=== PATIENT | female | born 1990 | race Caucasian/White ===

== ENCOUNTER 2016-11-03 23:13 | Outpatient (CLI) | payer SELFPAY ==
[~2016-11-03] VITALS: Ht 165.1 cm; Wt 85.8 kg
[~2016-11-03 23:13] MED LIST: CEPH-443 PO; TYL500 PO
[2016-11-03 23:52] VITALS: Ht 165.1 cm; Wt 85.8 kg
[2016-11-03 23:53] VITALS: BP 117/71; PULSE 93; RESP 18
[2016-11-03] MEDS ORDERED: PREN1TAB79 PO (23:56)
[2016-11-03] MEDS ORDERED: FERR325C PO (23:56)
[2016-11-04] MEDS ORDERED: TERBUTALINE 1 MG/ML INJ SC PRN (00:30)
[2016-11-04] MEDS ORDERED: LACTATED RINGER'S 1,000 ML IV* PRN (00:30)
--- NOTE | 2016-11-04 02:25 | RADRPT ---
PROCEDURE: US OB. CLINICAL INDICATION: labor TECHNIQUE: Multiple sonographic images of the pelvis were obtained. The images were reviewed on a PACS workstation. COMPARISON: 07/27/2016 FINDINGS: The cervix is closed with a length of 2.49 cm. There is a viable twin intrauterine gestation. TWIN A: Cardiac activity is present with 142 beats per minute. There is a breech presentation. Measurements were made in order to determine age. The results are as follows: BPD =7.97 cm. HC =29.31 cm. AC =28.18 cm. FL =6.21 cm. Estimated gestational age of approximately 32 weeks and 1 day. The estimated date of delivery is 12/29/2016. The EFW = 1924 grams (4 pounds 4 ounces) . Complete anatomic survey was not performed. The placenta is posterior and grade 2. Color Doppler flow was demonstrated.. There is no evidence f or an abruption or placenta previa. Amniotic fluid was not assessed. TWIN B: Cardiac activity is present with 156 beats per minute. There is a breech presentation. Measurements were made in order to determine age. The results are as follows: BPD =7.96 cm. HC =29.04 cm. AC =27.96 cm. FL =6.21 cm. Estimated gestational age of approximately 32 weeks and 0 days. The estimated date of delivery is 12/30/2016. The EFW = 1893 grams (4 pounds 3 ounces) . Anatomic survey was not performed. The placenta is posterior and grade 2. Color Doppler flow is demonstrated.. There is no evidence fo r an abruption or placenta previa. Amniotic fluid was not assessed. There are no imaged adnexal masses.. IMPRESSION: Live twin intrauterine gestation. Twin A: estimated gestational age of 32 weeks and 1 day with estimated date of delivery of 12/30/19 17. Estimated weight, 1924 g (4 pounds 4 ounces) Twin B: Estimated gestational age of 32 weeks and 0 days with estimated date of delivery of 017. Estimated weight 1893 g (4 pounds 3 ounces). Both placentas were posterior and grade 2 without definite evidence for abruption or previa. RPTAT: HLBE Ember Randall, Physician Date Time Electronically viewed and signed by Ember Randall, Physician on 11/04/2016 02:24 LE/
--- NOTE | 2016-11-04 03:20 | QN ---
Documentation Comment Laborist Dr Pham's pt. 26 y.o. G1 with a twin at 30w 6d and c/o UC's since 2199. Denies any VB or leaking. +FM. PMHx: GDM. PSHx: none. All: Tylenol. BP= 117/71. T= 97.9. EFW 1924 and 1893 grams, both breech. Cervix 2.49 cm. NST: baseline 150 bpm with accels to 170 bpm. No decels. UC's initially q 10 min but resolved completely after one dose of terbutaline and an IV bolus. A: IUP at 30w 6d. Twins. False labor. P: D/C IV and D/C home. PTL precautions given., REGGIE MAHER MD Nov 04, 2016 03:20
--- NOTE | 2016-11-04 04:42 | TRIAGE ---
OB Triage Datetime Report Generated by CPN: 11/04/2016 04:41 Datetime: 11/04/2016 03:00 Labor Evaluation Frequency: 0 Monitor Mode: External Duration (sec)2399: 0 Pattern: Normal: <= 5 Contractions in 10 Minutes Heart Rate FHR Baseline Rate: 150 Monitor Mode: External US FHR Baseline Changes: No Baseline Change Variability: Moderate 6-25 bpm Decelerations: None Category: Category I Datetime: 11/04/2016 02:07 Monitor Mode: External US Datetime: 11/04/2016 02:00 Labor Evaluation Frequency: 0 Monitor Mode: External Duration (sec)2399: 0 Pattern: Normal: <= 5 Contractions in 10 Minutes Contraction Comments: PT. DENIES HAVING CONTRACTIONS Heart Rate FHR Baseline Rate: 150 Monitor Mode: External US FHR Baseline Changes: No Baseline Change Variability: Moderate 6-25 bpm Datetime: 11/04/2016 01:43 Monitor Mode: External Monitor Mode: External US Datetime: 11/04/2016 01:00 Labor Evaluation Frequency: 0 Monitor Mode: External Duration (sec)2399: 0 Pattern: Normal: <= 5 Contractions in 10 Minutes Heart Rate FHR Baseline Rate: 145 Monitor Mode: External US FHR Baseline Changes: No Baseline Change Variability: Moderate 6-25 bpm Accelerations: 10X10 Category: Category I Datetime: 11/04/2016 00:49 Contraction Comments: PT. SELF REPORTS THAT SHE LAST FELT A UC AT MIDNIGHT Datetime: 11/04/2016 00:46 Monitor Mode: Palpation Resting Tone Chambers: Relaxed Monitor Mode: External US Datetime: 11/04/2016 00:16 Stage of : OB Triage Datetime: 11/04/2016 00:00 Monitor Mode: Palpation Pattern: Normal: <= 5 Contractions in 10 Minutes Heart Rate FHR Baseline Rate: 145 FHR Baseline Changes: No Baseline Change Variability: Moderate 6-25 bpm Accelerations: 10X10 Decelerations: None Category: Category I Datetime: 11/03/2016 23:48 Assessment Type: Triage Maternal Assessment Level of Consciousness: Fully Conscious DTR's/Clonus: DTRs 2+; No Clonus Headache: Denies Blurred Vision: No Respiratory Effort: Unlabored; Regular Rhythm; Equal Expansion Breath Sounds, Left: Clear and Equal Breath Sounds, Right: Clear and Equal Nausea/Vomiting: Denies RUQ Epigastric Pain: Denies Lower Extremities Edema: None Upper Extremities Edema: None Facial Edema: None Fall Risk Assessment History of Falling: (0) No Secondary Diagnosis: (0) No Ambulatory Aid: (0) Bedrest/Nurse Assist IV Therapy: (0) No Gait: (0) Normal/Bedrest/Immobile Mental Status: (0) Oriented to Own Ability Fall Score: 0 Fall Risk Score Definition: No Risk: No action required Datetime: 11/03/2016 23:45 Time of Arrival: 11/03/2016 23:09 EGA: 30.6 Arrived By: Wheelchair Arrived From: Home Chief Complaint: UC'S SINCE 22:00 Contractions: Occasional Contractions: Q10 Rupture of Membranes: Denies Vaginal Discharge: Denies Recent Sexual Intercouse: Denies Abdominal Trauma: Not Applicable Patient Complaints: Contractions Initial Plan: EFM, CALL OB Datetime: 11/03/2016 23:29 Monitor Mode: Palpation Quality: Mild Contraction Comments: MOVEMENT FELT
== END 2016-11-04 03:45 | disposition home or self-care (01) ==
LOC: OBT 23:13 → L-D 23:14 → OBT 11-04 03:45
PROVIDERS: ATTEND Obstetrics & Gynecology
DX: O47.03 False labor before 37 completed weeks of gestation, third trimester (principal); O30.003 Twin pregnancy, unspecified number of placenta and unspecified number of amniotic sacs, third trimester; Z3A.30 30 weeks gestation of pregnancy
CPT/HCPCS: 36415; 76815; 76817; 96360; 96372; G0463; J3105

== ENCOUNTER 2016-11-26 03:22 | Inpatient (IN) | payer MEDICAID ==
[~2016-11-26] VITALS: Ht 167.6 cm; Wt 87.1 kg
[~2016-11-26 03:22] MED LIST changes: -CEPH-443 PO; +FERR325C PO; +PREN1TAB79 PO; -TYL500 PO
[2016-11-26] MEDS ORDERED: LACTATED RINGER'S 1,000 ML IV ONE (04:30)
[2016-11-26 04:46] VITALS: Ht 167.6 cm; Wt 87.1 kg
[2016-11-26 05:29] LABS: ADD SCAN DIFF NO
[2016-11-26 05:35] LABS: BASOPHILS % 0.2 % (0.0-2.0); EOSINOPHILS % 0.1 % (0.0-7.0); HEMATOCRIT 27.8 % (37.0-47.0); HEMOGLOBIN 8.8 g/dl (12.0-16.0); LYMPHOCYTES # 1.3 10^3/ul (0.8-2.9); LYMPHOCYTES % 14.9 % (15.0-51.0); MEAN CORPUSCULAR HEMOGLOBIN 24.4 pg (29.0-33.0); MEAN CORPUSCULAR HGB CONC 31.7 g/dl (32.0-37.0); MEAN PLATELET VOLUME 9.6 fl (7.4-10.4); MONOCYTE # 0.9 10^3/ul (0.3-0.9); MONOCYTES % 10.1 % (0.0-11.0); NEUTROPHIL # 6.4 10^3/ul (1.6-7.5); NEUTROPHILS % 74.2 % (39.0-77.0); PLATELET COUNT 282 10^3/UL (140-415); RED BLOOD COUNT 3.61 10^6/ul (4.20-5.40); RED CELL DISTRIBUTION WIDTH 14.6 % (11.5-14.5); WHITE BLOOD COUNT 8.6 10^3/ul (4.8-10.8)
[2016-11-26 05:47] LABS: ALBUMIN 3.1 g/dl (3.3-4.9); POTASSIUM 4.1 mmol/L (3.5-5.1)
[2016-11-26 05:49] LABS: CREATININE 0.6 mg/dl (0.44-1.00)
[2016-11-26 05:50] LABS: BILIRUBIN,INDIRECT 0.3 mg/dl (0-1.1); BILIRUBIN,TOTAL 0.3 mg/dl (0.2-1.3); TOTAL PROTEIN 6.4 g/dl (6.1-8.1); URIC ACID 5.3 mg/dl (3.1-7.9)
[2016-11-26 05:51] LABS: CALCIUM 8.8 mg/dl (8.4-10.2)
[2016-11-26 05:58] LABS: ALBUMIN/GLOBULIN RATIO 0.93
[2016-11-26 06:09] LABS: INR 0.95; PARTIAL THROMBOPLASTIN TIME 26.9 Sec (25.0-35.0); PROTIME 12.7 Sec (12.2-14.2)
[2016-11-26 06:22] LABS: ADD UMIC YES; URINE BILIRUBIN (Dip) NEGATIVE (NEGATIVE); URINE BLOOD (Dip) NEGATIVE (NEGATIVE); URINE COLOR LT. YELLOW (YELLOW); URINE GLUCOSE (Dip) NEGATIVE (NEGATIVE); URINE KETONES (Dip) NEGATIVE (NEGATIVE); URINE LEUKOCYTE ESTERASE (Dip) 1+ (NEGATIVE); URINE NITRITE (Dip) NEGATIVE (NEGATIVE); URINE TOTAL PROTEIN (Dip) NEGATIVE (NEGATIVE); URINE UROBILINOGEN (Dip) 0.2 E.U./dL (0.1-1.0)
[2016-11-26] MEDS ORDERED: BUTORPHANOL 2 MG INJ IV ONE (06:30)
[2016-11-26] MEDS ORDERED: TERBUTALINE 1 MG/ML INJ SC ONE (06:30)
[2016-11-26 06:43] LABS: SQUAMOUS EPITHELIAL CELL,UR FEW; URINE RBCS NONE SEEN /HPF (0)
[2016-11-26] MEDS ORDERED: OXYTOCIN 30 UNITS/LR 500 ML IV PRN ×2 (08:30→22:00)
[2016-11-26] MEDS ORDERED: METHYLERGONOVINE 0.2 MG INJ IM PRN ×2 (08:30→22:00)
[2016-11-26] MEDS ORDERED: CARBOPROST 250 MCG INJ IM PRN ×2 (08:30→22:00)
[2016-11-26] MEDS ORDERED: MISOPROSTOL 200 MCG TAB PR PRN ×2 (08:30→22:00)
--- NOTE | 2016-11-26 08:47 | HP ---
Date/Time of Note Date/Time of Note DATE: 11/26/16 TIME: 08:45 OB - History Hx of Present Free Text/Dictation at 35 weeks with twin gestation. presented with headache and elevated bp. pt. is feeling uterine ctxs. Care: Good Care Ultrasounds: Normal mid trimester US Obstetrical Complications: Other Medical Complications: Other Past Family/Social History * Past Medical, Surgical, Family and Obstetric Histories reviewed from chart. OB Admission Exam Physical Exam HEENT: WNL Heart: Rhythm Normal Lungs: Clear, Equal Abdomen: WNL Extremities: Normal Reflexes: Normal Cervical Dilatation: 1cm Station: -3 Membranes: Intact Heart Rate: 130's Accelerations: Accelerations Present Decelerations: No Decelerations Varibility: Moderate Contractions on Admission: 6-10 Minutes Apart Intensity: Moderate Last 72 hours Lab Results CBC & BMP 11/26/16 05:15 Liver Function Test 11/26/16 05:15 Alanine Aminotransferase (ALT/SGPT) 26 Albumin 3.1 L Alkaline Phosphatase 173 H Aspartate Amino Transf (AST/SGOT) 20 Direct Bilirubin 0.00 Total Protein 6.4 OB Assessment/Plan Reason for admission: other (elevated bp and ctxs for twins at 35 weeks ) Plan: Section FREDY FUNEZ MD Nov 26, 2016 08:47
[2016-11-26] MEDS: CEFAZOLIN 2 GM/50 ML (PMX) 50 ML IV SCH ×2 (11:51→19:14)
[2016-11-26] MEDS ORDERED: CITRIC ACID/NA CITRATE 30 ML CUP ONE (14:24)
[2016-11-26] MEDS ORDERED: ONDANSETRON 4 MG INJ ONE (14:24)
[2016-11-26] MEDS: LACTATED RINGER'S 1,000 ML IV SCH ×3 (14:27→21:46)
[2016-11-26] MEDS ORDERED: ONDANSETRON 4 MG INJ IV STA ×3 (15:00→15:25)
[2016-11-26] MEDS ORDERED: CITRIC ACID/NA CITRATE 30 ML CUP PO ONE (15:00)
[2016-11-26] MEDS ORDERED: morphine SULFATE/PF (10 MG/10 ML) INJ ONE (17:52)
[2016-11-26] MEDS ORDERED: PHENYLephrine (100 MCG/ML) 5ML SYG ONE ×2 (18:22→18:37)
[2016-11-26] MEDS ORDERED: DEXAMETHASONE 4 MG/ML 1 ML INJ ONE (18:22)
[2016-11-26] MEDS ORDERED: ESMOLOL 10 ML ONE (18:22)
[2016-11-26] MEDS ORDERED: OXYTOCIN 10 UNIT INJ ONE (18:22)
[2016-11-26] MEDS ORDERED: METOCLOPRAMIDE 10 MG INJ ONE (18:22)
[2016-11-26] MEDS ORDERED: KETOROLAC 30 MG INJ ONE (18:22)
[2016-11-26] MEDS ORDERED: morphine 2 MG INJ IV PRN ×2 (18:30)
[2016-11-26] MEDS ORDERED: ONDANSETRON 4 MG INJ IV PRN (18:30)
[2016-11-26] MEDS ORDERED: PROCHLORPERAZINE 10 MG INJ IV PRN (18:30)
[2016-11-26] MEDS ORDERED: NALOXONE (0.4 MG/ML) INJ IV PRN (18:30)
[2016-11-26] MEDS ORDERED: HYDROmorphONE 1 MG/ML SYG IV PRN ×2 (18:30)
[2016-11-26] MEDS ORDERED: DIPHENHYDRAMINE 50 MG INJ IV PRN (18:30)
[2016-11-26] MEDS ORDERED: KETOROLAC 30 MG INJ IV PRN (18:30)
[2016-11-26] MEDS ORDERED: FENTAnyl 50 MCG/ML VIAL ONE (18:36)
[2016-11-26] MEDS: OXYTOCIN 30 UNITS/LR 500 ML IV SCH ×3 (19:16→21:46)
[2016-11-26 21:30] VITALS: BP 126/77; PULSE 98; RESP 18
--- NOTE | 2016-11-26 21:50 | OPR ---
Operative Report Planned Procedure Free Text/Dictation 35 weeks twins with high bp and uterine ctxs Procedure date Nov 26, 2016 Performed by: FREDY FUNEZ MD Assisting provider: FILOMENA HUSTON MD Anesthesia Type: spinal Procedure Description Under satisfactory []spinal anesthesia, the patient was prepped and draped and placed in a supine position, tilted to the left. Pfannenstiel incision was made , carried through the subcutaneous tissue. Bleeders brought under control with electrocautery. Fascia incised to the length of the incision. Rectus muscles from the fascia, divided midline. Peritoneum exposed, entered through a transverse incision. Exploration of abdomen revealed gravid uterus. Bladder flap was developed. Transverse incision was made in the lower segment of the uterus. Amniotic sac ruptured. [clear] amniotic fluid noted. both twins are delivered cephallically . [] Nasal oropharyngeal suction was performed. The baby was handed to the team for immediate attention. The placenta was delivered manually intact. Uterine cavity was cleaned with wet sponge and drainage established. Uterus closed in 2 layers using []one monocryl in continuous fashion. Peritoneal cavity irrigated with warm saline. Sponge, needle and instrument count reported to be correct. Abdominal peritoneum closed with [] continuously. Rectus muscle approximated with []. Fascia closed with one monocryl [], and skin closed with tiffanie. Estimated blood loss 700 []mL. Urine bag contained []mL of urine Post-Procedure Findings: Live Baby [], Apgars [] and [], weight [], position [], [] presentation []cord. Specimen removed: Yes Complications: None Pt Condition post procedure: stable Disposition: PACU Physician Certification I, the undersigned physician, hereby certify that I have discussed the procedure described in this consent form with this patient (or the patient's legal disability representative), including: * The risk and benefits of the procedure; * Any adverse reactions that may reasonably be expected to occur; * Any alternative efficacious methods of treatment which may be medically viable ; * The potential problems that may occur during recuperation; * Potential for blood transfusion and associated risks/benefits; and * Any research or economic interest I may have regarding this treatment. I further certify that the patient/legally responsible person was encouraged to ask question and that all questions were answered. FREDY FUNEZ MD Nov 26, 2016 21:50
[2016-11-26 22:00] VITALS: BP 122/70; PULSE 82; RESP 18
[2016-11-26] MEDS ORDERED: NACL 0.9% 3 ML SYG IV SCH (22:00)
[2016-11-26] MEDS ORDERED: LANOLIN 7 GM TUBE TOP PRN (22:00)
[2016-11-26] MEDS ORDERED: NA PHOSPHATE/BIPHOS 133 ML ENEMA PR PRN (22:00)
[2016-11-26] MEDS: IBUPROFEN 800 MG TAB PO SCH (22:00)
[2016-11-26] MEDS ORDERED: OXYCODONE/ASPIRIN (4.88/325) TAB PO PRN (22:00)
[2016-11-26 23:00] VITALS: BP 118/70; PULSE 86; RESP 18
[2016-11-27] MEDS: OXYTOCIN 30 UNITS/LR 500 ML IV SCH ×2 (03:51→05:40)
[2016-11-27 04:10] VITALS: BP 128/68; PULSE 80; RESP 18
[2016-11-27] MEDS: LACTATED RINGER'S 1,000 ML IV SCH (05:46)
[2016-11-27] MEDS: IBUPROFEN 800 MG TAB PO SCH ×3 (06:00→20:52)
--- NOTE | 2016-11-27 06:39 | OPPN ---
Date/Time of Note Date/Time of Note DATE: 11/27/16 TIME: 06:38 Post-Anesthesia Notes Post-Anesthesia Note Activity: WNL Respiratory function: WNL Cardiovascular function: WNL Mental status: Baseline Pain reasonably controlled: Yes Hydration appropriate: No Nausea/Vomiting absent: No Pt recovered from regional: Yes DEMETRIO GUIDO MD Nov 27, 2016 06:38
[2016-11-27 07:50] VITALS: BP 122/75; PULSE 97; RESP 18
[2016-11-27 08:21] LABS: ADD SCAN DIFF NO
[2016-11-27 08:28] LABS: BASOPHILS % 0.2 % (0.0-2.0); HEMATOCRIT 22.9 % (37.0-47.0); HEMOGLOBIN 7.4 g/dl (12.0-16.0); LYMPHOCYTES # 1.7 10^3/ul (0.8-2.9); LYMPHOCYTES % 15.8 % (15.0-51.0); MEAN CORPUSCULAR HEMOGLOBIN 24.7 pg (29.0-33.0); MEAN CORPUSCULAR HGB CONC 32.3 g/dl (32.0-37.0); MEAN CORPUSCULAR VOLUME 76.6 fl (82.0-101.0); MEAN PLATELET VOLUME 9.8 fl (7.4-10.4); MONOCYTE # 1.1 10^3/ul (0.3-0.9); MONOCYTES % 10.7 % (0.0-11.0); NEUTROPHIL # 7.7 10^3/ul (1.6-7.5); NEUTROPHILS % 72.9 % (39.0-77.0); NUCLEATED RED BLOOD CELLS% 0.2 /100WBC (0.0-0.0); PLATELET COUNT 246 10^3/UL (140-415); RED BLOOD COUNT 2.99 10^6/ul (4.20-5.40); RED CELL DISTRIBUTION WIDTH 14.8 % (11.5-14.5); WHITE BLOOD COUNT 10.5 10^3/ul (4.8-10.8)
[2016-11-27] MEDS ORDERED: LACTATED RINGER'S 1,000 ML IV SCH (10:30)
--- NOTE | 2016-11-27 11:30 | QN ---
Documentation Comment DOING WELL VSS ABD SOFT. D/C IV . CPM FREDY FUNEZ MD Nov 27, 2016 11:30
[2016-11-27 15:26] VITALS: BP 125/82; PULSE 85; RESP 18
[2016-11-27] MEDS: OXYCODONE/ASPIRIN (4.88/325) TAB PO PRN (18:23)
[2016-11-27 20:55] VITALS: BP 118/80; PULSE 102; RESP 18
[2016-11-28 04:30] VITALS: BP 125/78; PULSE 76; RESP 18
[2016-11-28] MEDS: IBUPROFEN 800 MG TAB PO SCH ×3 (05:58→21:34)
[2016-11-28 07:40] VITALS: BP 120/79; PULSE 76; RESP 18
[2016-11-28] MEDS ORDERED: DIPHTH/TET/ACEL PERTUSS (ADULT) 0.5 ML VIAL IM* ONE (09:00)
[2016-11-28] MEDS ORDERED: INFLUENZA VIRUS VACCINE 0.5 ML (DISPENSING) IM* ONE (09:00)
[2016-11-28] MEDS: DOCUSATE SODIUM 100 MG CAP PO SCH ×2 (10:13→21:34)
[2016-11-28] MEDS: FERROUS FUMARATE (SR) TAB PO SCH ×2 (11:14→21:34)
--- NOTE | 2016-11-28 13:06 | PN ---
Date/Time of Note Date/Time of Note DATE: 11/28/16 TIME: 12:58 OB Subjective Subjective Subjective Patient complains of headache. She reports blurred vision since she is not wearing her glasses. She denies feeling any putting black or white. She reports her blurred vision is due to her recurrent refractive error that she normally experiences when she does not wear glasses. She denies any right upper quadrant pain or epigastric pain. She passed flatus. She is pumping the breast. She is complaining of pain in the left side of incision and slight numbness in the mid and inner side of her left leg. She denies any pain in the leg. She also reports shortness of breath when she gets up and tries to walk quickly. Symptoms go away after she continue walking. Denies any chest pain, dizziness or lightheadedness. OB Objective Objective Objective General appearance: Alert and oriented 4 is not in any acute distress. HEENT: Pale mucosa CV: RRR Lungs: Clear to auscultation bilaterally Abdomen: Soft, appropriate tenderness in the section incision, no abnormal drainage from the incision. Gait: Normal, no limping Lower extremities: No calf tenderness, no cords palpable, no click, no edema, negative Homans sign Breast: No fissure, no engorgement, no evidence of mastitis Hematology - 72 Hrs Test 11/26/16 05:15 11/27/16 07:47 Basophils # 0.010^3/ul (0.0-0.1) 0.010^3/ul (0.0-0.1) Basophils % 0.2% (0.0-2.0) 0.2% (0.0-2.0) Eosinophils # 0.010^3/ul (0.0-0.5) 0.010^3/ul (0.0-0.5) Eosinophils % 0.1% (0.0-7.0) 0.0% (0.0-7.0) Hematocrit 27.8% (37.0-47.0) L 22.9% (37.0-47.0) L Hemoglobin 8.8g/dl (12.0-16.0) L 7.4g/dl (12.0-16.0) L Lymphocytes # 1.310^3/ul (0.8-2.9) 1.710^3/ul (0.8-2.9) Lymphocytes % 14.9% (15.0-51.0) L 15.8% (15.0-51.0) Mean Corpuscular Hemoglobin 24.4pg (29.0-33.0) L 24.7pg (29.0-33.0) L Mean Corpuscular Hemoglobin Concent 31.7g/dl (32.0-37.0) L 32.3g/dl (32.0-37.0) Mean Corpuscular Volume 77.0fl (82.0-101.0) L 76.6fl (82.0-101.0) L Mean Platelet Volume 9.6fl (7.4-10.4) 9.8fl (7.4-10.4) Monocytes # 0.910^3/ul (0.3-0.9) 1.110^3/ul (0.3-0.9) H Monocytes % 10.1% (0.0-11.0) 10.7% (0.0-11.0) Neutrophils # 6.410^3/ul (1.6-7.5) 7.710^3/ul (1.6-7.5) H Neutrophils % 74.2% (39.0-77.0) 72.9% (39.0-77.0) Nucleated Red Blood Cells # 0.010^3/ul (0.0-0.0) 0.010^3/ul (0.0-0.0) Nucleated Red Blood Cells % 0.0/100WBC (0.0-0.0) 0.2/100WBC (0.0-0.0) H Platelet Count 46250^3/UL (140-415) 94871^3/UL (140-415) Red Blood Count 3.6110^6/ul (4.20-5.40) L 2.9910^6/ul (4.20-5.40) L Red Cell Distribution Width 14.6% (11.5-14.5) H 14.8% (11.5-14.5) H White Blood Count 8.610^3/ul (4.8-10.8) # 10.510^3/ul (4.8-10.8) # Chemistry Test 11/26/16 05:15 Alanine Aminotransferase (ALT/SGPT) 26IU/L (13-69) Albumin 3.1g/dl (3.3-4.9) L Albumin/Globulin Ratio 0.93 Alkaline Phosphatase 173IU/L (42-121) H Anion Gap 16 (8-16) Aspartate Amino Transf (AST/SGOT) 20IU/L (15-46) Blood Urea Nitrogen 8mg/dl (7-20) Calcium Level 8.8mg/dl (8.4-10.2) Carbon Dioxide Level 21mmol/L (21-31) Chloride Level 106mmol/L (97-110) Creatinine 0.60mg/dl (0.44-1.00) Direct Bilirubin 0.00mg/dl (0.00-0.20) Globulin 3.30g/dl (1.3-3.2) H Glucose Level 85mg/dl (70-220) Indirect Bilirubin 0.3mg/dl (0-1.1) Potassium Level 4.1mmol/L (3.5-5.1) Sodium Level 139mmol/L (135-144) Total Bilirubin 0.3mg/dl (0.2-1.3) Total Protein 6.4g/dl (6.1-8.1) Uric Acid 5.3mg/dl (3.1-7.9) OB Assessment/Plan Other Assessment: 1.Status post section at 34 weeks due to PIH Twin gestation Both babies are in NICU due to prematurity. Blood pressure is well controlled . Headache likely related to anemia She is currently pumping her breasts. 2. Anemia, postop, likely under estimated blood loss.complaining of shortness of breath when she immediately gets up otherwise asymptomatic. She is not tachycardic. Denies any chest pain. Denies any dizziness or lightheadedness EKG requested. Advised to gradually gets up from laying down position. We will started on iron twice a day for stool softener. If shortness of breath continues may consider blood transfusion and this option has been discussed as well with the patient. Desires to proceed with iron at this time 3. Mild paresthesia of left lower extremity, likely related to regional anesthesia. No limping. We will continue expectant management We will reassess tomorrow again Plan: Expectant Management Other plan: Routine postop care EKG Iron twice a day with stool softener and vitamin C DUY BERKOWITZ MD Nov 28, 2016 13:06
[2016-11-28 15:30] VITALS: BP 126/86; PULSE 81; RESP 16
--- NOTE | 2016-11-28 16:01 | RADRPT ---
Vent Rate: 80 bpm RR Interval: 0 msec MD Interval: 162 msec QRS Duration: 86 msec QT Interval: 374 msec QTC Interval: 431 msec P-R-T Blandon: 63 - 42 - 42 degrees Normal sinus rhythm with sinus arrhythmia Cannot rule out Anterior infarct , age undetermined Abnormal ECG Electronically Signed By: Sabas Duggan [phone]
[2016-11-28 20:00] VITALS: BP 122/71; PULSE 75; RESP 18
[2016-11-29 04:00] VITALS: BP 126/86; PULSE 80; RESP 18
[2016-11-29] MEDS: IBUPROFEN 800 MG TAB PO SCH ×3 (05:39→21:26)
[2016-11-29 08:00] VITALS: BP 123/80; PULSE 81; RESP 20
[2016-11-29] MEDS ORDERED: MEASLES,MUMPS,RUBELLA VACCINE INJ SC* ONE (09:00)
[2016-11-29] MEDS: FERROUS FUMARATE (SR) TAB PO SCH ×2 (09:17→21:26)
[2016-11-29] MEDS: DOCUSATE SODIUM 100 MG CAP PO SCH ×2 (09:17→21:00)
--- NOTE | 2016-11-29 10:50 | QN ---
Documentation Comment pt. w/ complaints of headache due to spinal anesthesia. The anesthesiologist is coming to see her today. vss abd soft incision c&d FREDY FUNEZ MD Nov 29, 2016 10:50
--- NOTE | 2016-11-29 10:53 | DS ---
Date/Time of Note Date/Time of Note DATE: 11/29/16 TIME: 10:50 Discharge Summary Admission/Discharge Info Admit Date/Time Nov 26, 2016 at 08:43 Discharge Date/Time Final Diagnosis . labor c/s for twins Patient Condition: Stable Hospital Course unremarkable , only spinal heachache Home Meds Reported Medications Ferrous Sulfate (Iron) 325 Mg Capsule.er, 325 MG PO, CAP 11/03/16 Vit W-Ca,Fe,FA(<1 mg) ( Vitamins) 1 Each Tablet, 1 EACH PO, TAB 11/03/16 FREDY FUNEZ MD Nov 29, 2016 10:53
--- NOTE | 2016-11-29 10:54 | PD.PPDC ---
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 Condition Patient Condition: Stable Diet Diet: Resume Regular Diet Activity/Restrictions Activity: Normal Activity May Shower Restrictions: No Exercising No Lifting No Driving No Sexual Activity Nothing in the Vagina No [place] No Tampons, douche Wound/Drain Care Instructions Wound/Drain Care Instructions: Wash with soap and water Keep clean and dry Follow-up Follow-up with Physician: Week/Weeks Return to clinic for [employer] Instructions: Fever greater than 101 Chills Worsening abdominal pain Excessive Vaginal Bleeding More than 2 pads per hour Unable to tolerate diet OB Instructions: Breast Tenderness Depression Blurried Vision Headache Surgical Instructions: Incisional Drainage Incisional Redness FREDY FUNEZ MD Nov 29, 2016 10:54
[2016-11-29 16:00] VITALS: BP 114/77; PULSE 80; RESP 18
[2016-11-29 20:05] VITALS: BP 127/88; PULSE 82; RESP 18
[2016-11-30 04:08] VITALS: BP 136/87; PULSE 72; RESP 18
[2016-11-30] MEDS: IBUPROFEN 800 MG TAB PO SCH ×2 (05:32→13:03)
[2016-11-30 08:00] VITALS: BP 110/74; PULSE 75; RESP 20
[2016-11-30] MEDS: FERROUS FUMARATE (SR) TAB PO SCH (08:54)
[2016-11-30] MEDS: OXYCODONE/ASPIRIN (4.88/325) TAB PO PRN (08:55)
[2016-11-30] MEDS: DOCUSATE SODIUM 100 MG CAP PO SCH (09:00)
[2016-11-30 16:18] VITALS: BP 124/65; PULSE 90; RESP 20
== END 2016-11-30 17:45 | disposition home or self-care (01) | DRG 765 ==
LOC: OBT 03:22 → L-D 03:22 → OBT 08:40 → L-D 08:43 → PP1 22:08
PROVIDERS: ADMIT Obstetrics & Gynecology; ATTEND Obstetrics & Gynecology
PROC: 10D00Z1 Extraction of Products of Conception, Low, Open Approach (ICD-10-PCS; principal; 2016-11-26 17:00)
DX: O60.14X0 Preterm labor third trimester with preterm delivery third trimester, not applicable or unspecified (principal); O30.003 Twin pregnancy, unspecified number of placenta and unspecified number of amniotic sacs, third trimester; O13.4 Gestational [pregnancy-induced] hypertension without significant proteinuria, complicating childbirth; Z3A.35 35 weeks gestation of pregnancy; Z37.2 Twins, both liveborn
CPT/HCPCS: 36415; 80053; 81001; 81003; 84560; 85025; 85384; 85610; 85730; 86592; 86850; 86900; 86901; 87340; 88307; 90686; 90715; 93005; 94760; 96360; 96361; 99464; G0463; J0690; J1100; J1200; J1885; J2274; J2370; J2405; J2590; J2765; J3010; J3105; J7120

== ENCOUNTER 2017-01-23 10:48 | Emergency (ER) | payer MEDICAID, OTHER ==
[~2017-01-23] VITALS: Ht 162.6 cm; Wt 56.0 kg
[2017-01-23 10:50] VITALS: Ht 162.6 cm; Wt 56.0 kg
[2017-01-23] MEDS ORDERED: SOD CHLORIDE 0.9% 1,000 ML IV STA (12:08)
[2017-01-23] MEDS ORDERED: ONDANSETRON 4 MG INJ IV STA (12:08)
[2017-01-23] MEDS ORDERED: morphine 4 MG/ML VIAL IV STA (12:08)
[2017-01-23 13:34] LABS: ADD SCAN DIFF NO
[2017-01-23 13:37] LABS: BASOPHIL # 0.1 10^3/ul (0.0-0.1); BASOPHILS % 0.4 % (0.0-2.0); EOSINOPHILS # 0.1 10^3/ul (0.0-0.5); EOSINOPHILS % 0.4 % (0.0-7.0); HEMOGLOBIN 11.5 g/dl (12.0-16.0); MEAN CORPUSCULAR HGB CONC 30.3 g/dl (32.0-37.0); MEAN CORPUSCULAR VOLUME 76.2 fl (82.0-101.0); MEAN PLATELET VOLUME 9.6 fl (7.4-10.4); MONOCYTE # 1.1 10^3/ul (0.3-0.9); MONOCYTES % 7.8 % (0.0-11.0); NEUTROPHIL # 11.8 10^3/ul (1.6-7.5); PLATELET COUNT 464 10^3/UL (140-415); RED BLOOD COUNT 4.99 10^6/ul (4.20-5.40); RED CELL DISTRIBUTION WIDTH 17.9 % (11.5-14.5)
--- NOTE | 2017-01-23 13:49 | RADRPT ---
PROCEDURE: US Abdomen (right upper quadrant). CLINICAL INDICATION: Right upper quadrant abdomen pain. TECHNIQUE: Multiple real-time longitudinal and transverse images of the right upper quadrant of th e abdomen were acquired utilizing a curved array transducer. Images were reviewed on a high-resoluti on PACS workstation. COMPARISON: None FINDINGS: The liver is enlarged and diffusely increased in echogenicity. There is no focal hepatic lesion. Color Doppler and pulsed Doppler sonography demonstrate normal a ntegrade flow in the portal vein. The gallbladder is distended and multiple small gallstones are present in the gallbladder. There is a positive ultrasonographic Siu sign. There is no fluid around the gallbladder. The bile ducts are normal with the common bile duct measuring 4.9 mm in diameter. The visualized portions of the pancreas are unremarkable with obscuration of the tail of the pancrea s. No free fluid is present. The right kidney measures 11.9 x 4.2 cm. There is normal echogenicity of the right kidney. There is no perinephric fluid collection. No hydronephrosis, mass, or calculus is seen. IMPRESSION: 1. Hepatomegaly. 2. Fatty metamorphosis of the liver. 3. Gallstones in the gallbladder and positive Siu's sign. This may indicate cholecystitis. Cli nical correlation is advised. 4. Otherwise normal right upper quadrant abdomen ultrasound. RPTAT: QQ .Peter Mendoza MD, MD Date Time Electronically viewed and signed by .Peter Mendoza MD, on 01/23/2017 13:49 .R/
[2017-01-23 13:53] LABS: POTASSIUM 3.7 mmol/L (3.5-5.1)
[2017-01-23 13:56] LABS: ALBUMIN/GLOBULIN RATIO 1.19; BILIRUBIN,INDIRECT 0.5 mg/dl (0-1.1); BILIRUBIN,TOTAL 0.5 mg/dl (0.2-1.3); CALCIUM 9.7 mg/dl (8.4-10.2); CREATININE 0.72 mg/dl (0.44-1.00); TOTAL PROTEIN 9.2 g/dl (6.1-8.1)
[2017-01-23 14:31] LABS: ADD UMIC NO; URINE BILIRUBIN (Dip) NEGATIVE (NEGATIVE); URINE BLOOD (Dip) NEGATIVE (NEGATIVE); URINE COLOR LT. YELLOW (YELLOW); URINE GLUCOSE (Dip) NEGATIVE (NEGATIVE); URINE KETONES (Dip) NEGATIVE (NEGATIVE); URINE LEUKOCYTE ESTERASE (Dip) NEGATIVE (NEGATIVE); URINE NITRITE (Dip) NEGATIVE (NEGATIVE); URINE TOTAL PROTEIN (Dip) NEGATIVE (NEGATIVE); URINE UROBILINOGEN (Dip) 0.2 E.U./dL (0.1-1.0)
[2017-01-23] MEDS ORDERED: ONDA4TAB14 PO (14:33)
[2017-01-23] MEDS ORDERED: IBUP400T22 PO (14:33)
--- NOTE | 2017-01-23 14:55 | ERD ---
ER Documentation Chief Complaint Date/Time DATE: 01/23/17 TIME: 14:48 Chief Complaint upper abd pain with dizziness HPI This is a 26-year-old female presenting to the emergency room complaining of 10 out of 10 epigastric pain that radiates to her back started 2 days ago. Patient denies any fevers, nausea, vomiting, diarrhea, constipation. She does admit to having a decreased appetite but drinking milk this morning. Patient states that she had a about 7 weeks ago. She denies taking any medications for this. ROS All systems reviewed and are negative except as per history of present illness. Medications Home Meds Active Scripts Ondansetron (Ondansetron Odt) 4 Mg Tab.rapdis, 4 MG PO Q6H Y for NAUSEA AND/OR VOMITING, #10 TAB Prov:JT WONG PA-C 01/23/17 Ibuprofen* (Ibuprofen*) 400 Mg Tablet, 400 MG PO Q6H Y for PAIN, #20 TAB Prov:JT WONG PA-C 01/23/17 Reported Medications Ferrous Sulfate (Iron) 325 Mg Capsule.er, 325 MG PO, CAP 11/03/16 Vit W-Ca,Fe,FA(<1 mg) ( Vitamins) 1 Each Tablet, 1 EACH PO, TAB 11/03/16 Allergies Allergies: Coded Allergies: acetaminophen (Verified Allergy, Mild, 11/26/16) PMhx/Soc Medical and Surgical Hx: pt denies Medical Hx History of Surgery: Yes (caesarian section) Anesthesia Reaction: No Hx Neurological Disorder: No Hx Respiratory Disorders: No Hx Cardiac Disorders: No Hx Psychiatric Problems: No Hx Miscellaneous Medical Probl: Yes (ELEVATED BLOOD GLUCOSE) Hx Alcohol Use: No Hx Substance Use: No Hx Tobacco Use: No Smoking Status: Never smoker Physical Exam Vitals Vital Signs Date Time Temp Pulse Resp B/P Pulse Ox O2 Delivery O2 Flow Rate FiO2 01/23/17 10:50 98.1 66 18 106/69 99 Physical Exam GENERAL: well-developed/well-nourished, in no apparent distress, non-toxic appearing HENT: NC/AT, moist mucous membranes EYES: Conjunctiva normal NECK: Supple, no lymphadenopathy PULM: CTA bilaterally, no rales, rhonchi, or wheezing heard CV: Normal S1S2, RRR, good capillary refill GI: Soft, non-distended, tender to palpation epigastric region Normal bowel sounds, no masses or organomegaly felt on exam No gross peritonitis, no bruits Negative Rovsing, +- Siu, negative McBurney's point, Negative CVAT BACK: No masses EXT: No clubbing, cyanosis, or edema NEURO: Alert and Orientated SKIN: Intact, normal turgor PSYCH: Normal mood and mentation Result Diagram: 01/23/17 1320 01/23/17 1320 Results 24 hrs Laboratory Tests Test 01/23/17 13:20 White Blood Count 14.010^3/ul Red Blood Count 4.9910^6/ul Hemoglobin 11.5g/dl Hematocrit 38.0% Mean Corpuscular Volume 76.2fl Mean Corpuscular Hemoglobin 23.0pg Mean Corpuscular Hemoglobin Concent 30.3g/dl Red Cell Distribution Width 17.9% Platelet Count 92641^3/UL Mean Platelet Volume 9.6fl Neutrophils % 84.0% Lymphocytes % 7.0% Monocytes % 7.8% Eosinophils % 0.4% Basophils % 0.4% Nucleated Red Blood Cells % 0.0/100WBC Neutrophils # 11.810^3/ul Lymphocytes # 1.010^3/ul Monocytes # 1.110^3/ul Eosinophils # 0.110^3/ul Basophils # 0.110^3/ul Nucleated Red Blood Cells # 0.010^3/ul Urine Color LT. YELLOW Urine Clarity CLEAR Urine pH 6.0 Urine Specific [place] 1.020 Urine Ketones NEGATIVE Urine Nitrite NEGATIVE Urine Bilirubin NEGATIVE Urine Urobilinogen 0.2 E.U./dL Urine Leukocyte Esterase NEGATIVE Urine Hemoglobin NEGATIVE Urine Glucose NEGATIVE% Urine Total Protein NEGATIVE Sodium Level 143mmol/L Potassium Level 3.7mmol/L Chloride Level 102mmol/L Carbon Dioxide Level 25mmol/L Anion Gap 20 Blood Urea Nitrogen 14mg/dl Creatinine 0.72mg/dl Glucose Level 99mg/dl Calcium Level 9.7mg/dl Total Bilirubin 0.5mg/dl Direct Bilirubin 0.00mg/dl Indirect Bilirubin 0.5mg/dl Aspartate Amino Transf (AST/SGOT) 139IU/L Alanine Aminotransferase (ALT/SGPT) 84IU/L Alkaline Phosphatase 119IU/L Total Protein 9.2g/dl Albumin 5.0g/dl Globulin 4.20g/dl Albumin/Globulin Ratio 1.19 Lipase 174U/L Current Medications Medications (Trade) Dose Ordered Sig/Delta Route PRN Reason Start Time Stop Time Status Last Admin Dose Admin Sodium Chloride (NS) 1,000 ml @ 1,000 mls/hr Q1H STAT IV 01/23/17 12:08 01/23/17 13:07 DC 01/23/17 13:47 Morphine Sulfate (morphine) 4 mg ONCE STAT IV 01/23/17 12:08 01/23/17 12:09 DC 01/23/17 13:47 Ondansetron HCl (Zofran Inj) 4 mg ONCE STAT IV 01/23/17 12:08 01/23/17 12:09 DC 01/23/17 13:47 Procedures/MDM This is a 26-year-old female presenting to emergency department complaining of epigastric pain that radiates to the back which is likely due to cholelithiasis. Patient was also found to have hepatomegaly with nonalcoholic fatty liver. I doubt patient has sepsis, choledocholithiasis, cholecystitis or cholangitis, pancreatitis or other acute abdomen conditions due to physical examination and diagnostic testing. Patient appears well and nontoxic appearing with stable vital signs. IV access established, patient was given 1 L fluids with morphine and Zofran. Lab work was drawn. Patient had mild leukocytosis. Patient had mild elevation in transaminases with normal bilirubin. No evidence of any hepatic obstruction. A gallbladder ultrasound was done and radiologist stated: 1. Hepatomegaly. 2. Fatty metamorphosis of the liver. 3. Gallstones in the gallbladder and positive Siu's sign. This may indicate cholecystitis. Clinical correlation is advised. 4. Otherwise normal right upper quadrant abdomen ultrasound. Diagnostic testing and instructions were given to patient. Pain control and antiemetic prescriptions were provided for outpatient self-care. Discussed with patient to follow-up with primary care for GI referral. Precautions were given to return to the ER for fever, intractable pain, increased vomiting, and other worsening signs and symptoms. Patient expressed agreement and understanding of this plan.] Departure Diagnosis: Primary Impression: Cholelithiasis Additional Impressions: Fatty liver Hepatomegaly Condition: Stable Patient Instructions: Non-Alcoholic Fatty Liver Disease (NAFLD), Gallstones Additional Instructions: FOLLOW UP WITH YOUR PRIMARY CARE PHYSICIAN TOMORROW.Return to this facility if you are not improving as expected. Take all medicines as directed. Return to this facility if you are not improving as expected. JT WONG PA-C January 23, 2017 14:55
[2017-01-23 15:30] VITALS: BP 106/70; PULSE 84; RESP 18; TEMP 97.9
== END 2017-01-23 15:30 | disposition home or self-care (01) ==
LOC: FTE 10:48
DX: K80.20 Calculus of gallbladder without cholecystitis without obstruction (principal); K76.0 Fatty (change of) liver, not elsewhere classified; R16.0 Hepatomegaly, not elsewhere classified
CPT/HCPCS: 36415; 76705; 80053; 81003; 83690; 85025; 96374; 96375; J2270; J2405; J7030; Z7502